=== PATIENT | female | born 1985 | race Caucasian/White ===

== ENCOUNTER 2017-07-02 16:47 | Emergency (ER) | payer BC ==
[~2017-07-02] VITALS: Ht 172.7 cm; Wt 106.1 kg
[~2017-07-02 16:47] MED LIST: AZITHROMYCIN500 MG PO; HYDROCODON-ACE1 EA10 PO; KEFLEX500 MG PO; LISINOPRIL10 MG PO; NORCO 10-325 T1 EACH PO; NORCO 5-325 TA1 EACH PO; PENICILLIN V P500 MG PO; PROVENTIL HFA6.7 GM INH
[2017-07-02] MEDS ORDERED: PRINIVIL10 MG PO (18:50)
== END 2017-07-02 19:15 | disposition home or self-care (01) ==
LOC: ED 16:47
PROC: 0W3Q7ZZ Control Bleeding in Respiratory Tract, Via Natural or Artificial Opening (ICD-10-PCS; principal; 2017-07-02)
DX: R04.0 Epistaxis (principal); I10 Essential (primary) hypertension; Z90.49 Acquired absence of other specified parts of digestive tract; Z98.890 Other specified postprocedural states; Z79.2 Long term (current) use of antibiotics; Z79.899 Other long term (current) drug therapy
CPT/HCPCS: 30901; 99283

== ENCOUNTER 2020-09-29 08:07 | Emergency (ER) | payer OTHER ==
[~2020-09-29] VITALS: Ht 175.3 cm; Wt 99.8 kg
[~2020-09-29 08:07] MED LIST changes: +PRINIVIL10 MG PO
--- OUTSIDE RECORDS SUMMARY | 2020-09-29 08:10 | XMS ---
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 Daniel has no Care Guidelines for this patient. Rosy VISIT COUNT (12 MO.) 1 JUANA Landis TOTAL 1 NOTE: Visits indicate total known visits. ED/C VISIT TRACKING (12 MO.) 09/29/2020 08:08 [facility] Black [place] TYPE: Emergency COMPLAINT: - CHEST PAIN INPATIENT VISIT TRACKING (12 MO.) No inpatient visits to display in this time frame [id number]
[2020-09-29] MEDS ORDERED: METOPROLOL SUCC25 MG PO (08:27)
[2020-09-29] MEDS ORDERED: ONDANSETRON ODT4 MG PO (08:27)
[2020-09-29] MEDS ORDERED: NIFEDIPINE ER30 M1 PO (08:28)
--- NOTE | 2020-09-29 16:58 | EKG ---
[facility] [address] [place], [place] [address] Signed Normal sinus rhythm Normal ECG No previous ECGs available Confirmed by MILO GUARDADO MD ([id number]) on 09/29/2020 4:58:03 PM Electronically Signed By: MILO GUARDADO MD 09/29/20 1658 PATIENT NAME: FLORES FELIZ Electrocardiogram DATE OF : 85 PHYSICIAN: MILO GUARDADO MD REPORT #: [id number] REPORT IS CONFIDENTIAL AND NOT TO BE RELEASED WITHOUT AUTHORIZATION
== END 2020-09-29 09:25 | disposition home or self-care (01) ==
LOC: ED 08:07
DX: I10 Essential (primary) hypertension (principal); Z79.899 Other long term (current) drug therapy
CPT/HCPCS: 80053; 84484; 85025; 93005; 93010; 99285-25

== ENCOUNTER 2023-05-28 17:53 | Emergency (ER) | payer OTHER ==
[~2023-05-28] VITALS: Ht 175.3 cm; Wt 99.8 kg
[~2023-05-28 17:53] MED LIST changes: +METOPROLOL SUCC25 MG PO; +NIFEDIPINE ER30 M1 PO; +ONDANSETRON ODT4 MG PO
--- OUTSIDE RECORDS SUMMARY | 2023-05-28 18:00 | XMS ---
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 Care History Medical/Surgical 10/01/2020 [facility] CALLED PATIENT- NO ANSWER-VOICEMAIL BOX HAS NOT BEEN SET UP. Rosy VISIT COUNT (12 MO.) 1 [facility] TOTAL 1 NOTE: Visits indicate total known visits. ED/UCC VISIT TRACKING (12 MO.) 05/28/2023 17:54 JUANA Black [place] TYPE: Emergency COMPLAINT: - SKIN PROBLEM INPATIENT VISIT TRACKING (12 MO.) No inpatient visits to display in this time frame [id number]
[2023-05-28] MEDS ORDERED: BACTRIM DS TAB1 EACH PO (19:32)
[2023-05-28 19:44] VITALS: BP 154/94
== END 2023-05-28 19:45 | disposition home or self-care (01) ==
LOC: ED 17:53
DX: L03.313 Cellulitis of chest wall (principal); I10 Essential (primary) hypertension; Z79.899 Other long term (current) drug therapy
CPT/HCPCS: A9270

== ENCOUNTER 2023-12-21 20:50 | Emergency (ER) | payer BC ==
[~2023-12-21] VITALS: Ht 175.3 cm; Wt 110.0 kg
[~2023-12-21 20:50] MED LIST changes: +BACTRIM DS TAB1 EACH PO
--- OUTSIDE RECORDS SUMMARY | 2023-12-21 20:57 | XMS ---
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 Care History Medical/Surgical 10/01/2020 [facility] \R\- [facility] CALLED PATIENT- NO ANSWER-VOICEMAIL BOX HAS NOT BEEN SET UP. Rosy VISIT COUNT (12 MO.) 2 [facility] TOTAL 2 NOTE: Visits indicate total known visits. 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
[2023-12-21] MEDS ORDERED: TRAMADOL HCL 50 MG HOME.PACK PO ONE (21:15)
[2023-12-21] MEDS ORDERED: AMOXICILLIN/CLAVULANATE K 875 MG HOME.PACK PO ONE (21:15)
[2023-12-21] MEDS ORDERED: TRAMADOL HCL50 MG PO (21:16)
[2023-12-21] MEDS ORDERED: AMOX TR-K CLV1 EAC1 PO (21:16)
[2023-12-21 21:29] VITALS: BP 173/108
== END 2023-12-21 21:30 | disposition home or self-care (01) ==
LOC: ED 20:50
DX: K04.7 Periapical abscess without sinus (principal); I10 Essential (primary) hypertension; Z79.899 Other long term (current) drug therapy
CPT/HCPCS: A9270

== ENCOUNTER 2024-11-22 16:42 | Emergency (ER) | payer OTHER ==
[~2024-11-22] VITALS: Ht 175.3 cm; Wt 116.2 kg
[~2024-11-22 16:42] MED LIST changes: +AMOX TR-K CLV1 EAC1 PO; +TRAMADOL HCL50 MG PO
--- OUTSIDE RECORDS SUMMARY | 2024-11-22 16:48 | XMS ---
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 Care History Medical/Surgical 10/01/2020 [facility] \R\- [facility] CALLED PATIENT- NO ANSWER-VOICEMAIL BOX HAS NOT BEEN SET UP. E.D. VISIT COUNT (12 MO.) 2 [facility] 1 [facility] ([facility] TOTAL 3 NOTE: Visits indicate total known visits. ED/UCC VISIT TRACKING (12 MO.) 11/22/2024 16:42 [facility] Black [place] TYPE: Emergency COMPLAINT: - HIGH BLOOD PRESSURE 09/26/2024 10:[address] 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
[2024-11-22] MEDS ORDERED: NORVASC5 MG (16:57)
[2024-11-22 17:37] LABS: BASOPHILS 0.7 % (0-2); EOSINOPHILS 0.9 % (0-6); HEMATOCRIT 34.7 % (35.0-50.0); HEMOGLOBIN 11.2 g/dL (12.0-18.0); LYMPHOCYTES 11.7 % (24-44); MCH 23.3 (27-36); MCHC 32.2 g/dl (30-36); MCV 72.4 fl (81-99); MONOCYTES 6.4 % (0-12); NEUTROPHILS 80.3 % (39-80); PLATELET COUNT 323 K/uL (140-440); RBC 4.79 M/ul (4.3-5.7); RDW 18.2 (10.5-15.0)
[2024-11-22 17:53] LABS: ALBUMIN/GLOBULIN RATIO 1.14 (1.1-2.4); ANION GAP 10.3 (7-21); BILIRUBIN, TOTAL 0.3 mg/dL (0.2-1.0); BUN/CREATININE RATIO 15.62 (6.0-28.6); CALCIUM 9.2 mg/dL (8.5-10.1); CREATININE, SERUM 0.96 mg/dL (0.55-1.02); POTASSIUM 3.3 mmol/L (3.5-5.1); PROTEIN, TOTAL 7.5 g/dL (6.4-8.2)
[2024-11-22] MEDS ORDERED: OXYCODONE HCL 5 MG TAB PO ONE (18:00)
[2024-11-22] MEDS ORDERED: cloNIDine HCL 0.1 MG TAB SL ONE (18:00)
[2024-11-22] MEDS ORDERED: ondansetron HCL 4 MG/2 ML VIAL IV ONE (18:15)
[2024-11-22 20:06] VITALS: BP 166/89
--- NOTE | 2024-11-23 19:13 | EKG ---
[facility] [address] [facility] [address] [place] [address] Signed Normal sinus rhythm Minimal voltage criteria for LVH, may be normal variant ( [place] product ) Borderline ECG When compared with ECG of 29-SEP-2020 08:12, No significant change was found Confirmed by Juan David Del Rosario MD ([id number]) on 11/23/2024 7:13:19 PM Electronically Signed By: JUAN DAVID DEL ROSARIO MD 11/23/24 1913 PATIENT NAME: FLORES FELIZ Electrocardiogram DATE OF : 85 PHYSICIAN: JUAN DAVID DEL ROSARIO MD REPORT #: [id number] REPORT IS CONFIDENTIAL AND NOT TO BE RELEASED WITHOUT AUTHORIZATION
== END 2024-11-22 20:08 | disposition home or self-care (01) ==
LOC: ED 16:42
PROVIDERS: Emergency Medicine
DX: I10 Essential (primary) hypertension (principal); Z98.890 Other specified postprocedural states; Z79.899 Other long term (current) drug therapy
CPT/HCPCS: 36415; 80053; 85025; 93005; 93010; 96374; 99284-25; A9270; J2405